=== PATIENT | female | born 1965 | race Caucasian/White ===

== ENCOUNTER → 2018-02-24 | Outpatient (CLI) | payer OTHER | LOC: FIMAGING 12:11 | PROVIDERS: ATTEND Family Medicine | DX: Z12.31 Encounter for screening mammogram for malignant neoplasm of breast (principal) ==

== ENCOUNTER 2019-02-02 17:38 | Observation (INO) | payer OTHER | END 2019-02-03 16:45 | disposition home or self-care (01) | LOC: F2W 20:20 ==

== ENCOUNTER → 2019-03-01 | Outpatient (CLI) | payer OTHER | LOC: FIMAGING 10:01 ==